=== PATIENT | female | born 1955 | race Caucasian/White ===

== ENCOUNTER 2020-11-09 10:30 | Outpatient (CLI) | payer MEDICARE, SELFPAY ==
--- NOTE | 2020-11-09 10:42 | US_ITS ---
WS: [id number] ULTRASOUND ABDOMEN LIMITED CLINICAL INFORMATION: ELEVATED BILIRUBIN COMPARISON: None. FINDINGS: Liver Size: Enlarged Craniocaudal length: 16.8 cm. Echogenicity: Coarse Surface nodularity: None. Mass (size and location): None. Bile ducts Intrahepatic ducts: Normal. Common bile duct diameter: 0.3 cm. Gallbladder Normal. Gallstones: None. Gallbladder sludge: None. Gallbladder wall thickening: None. Pericholecystic fluid: None. Sonographic Simeon sign: Absent. Pancreas Normal as visualized. Right kidney: Large simple cyst right kidney measuring 4.1 x 4.2 x 4.7 cm Moderate right pelvocaliectasis and proximal ureterectasis. Size: 11.2 cm x 5.8 cm x 3.8 cm. Abdominal aorta and IVC Visualized portions are normal. Ascites: None. US/US gall bladder [id number] IMPRESSION: 1. Mild hepatomegaly with diffuse fatty infiltration. 2. Large simple cyst right kidney measuring 4.1 x 4.2 x 4.7 cm 3. Moderate pelvocaliectasis right kidney with moderate right proximal uretere ctasis. This can be further evaluated with CT renal stone protocol to assess fo r distal obstruction. 4. Normal gallbladder.
== END 2020-11-09 10:31 | disposition home or self-care (01) ==
PROVIDERS: PCP Nurse Practitioner Family; Visit Provider Nurse Practitioner Family
DX: R16.0 Hepatomegaly, not elsewhere classified (principal); N28.1 Cyst of kidney, acquired; K76.0 Fatty (change of) liver, not elsewhere classified; N13.4 Hydroureter
CPT/HCPCS: 76705

== ENCOUNTER 2020-11-17 10:23 | Outpatient (CLI) | payer MEDICARE, SELFPAY ==
--- NOTE | 2020-11-17 10:38 | CT_ITS ---
WS: [id number] CT ABDOMEN PELVIS TECHNIQUE: Noncontrast CT of the abdomen and pelvis with coronal and sagittal reformatted images. CLINICAL INFORMATION: ABNORMAL FINDINGS OF RIGHT KIDNEY COMPARISON: Ultrasound November 09, 2020 DLP: 1042.[address] scans at [facility] use at least one of these dose optimization techniques: automat ed exposure control; mA and/or kV adjustment per patient size (includes targeted exams where dose is matched to clinical indication); or iterative reconstruction. FINDINGS: Right renal cyst measuring 4.2 x 4.7 CM. Slightly prominent right renal pelvis. Right ureter appears decompressed. No visualized obstructing renal or ureteral calculi. Right ureter not well visualized i n the pelvis due to significant beam hardening artifact from bilateral THAs. No hydronephrosis in the left kidney. Left ureter is decompressed where visualized. Mild hepatomegaly. Normal noncontrast spleen. Small esophageal hiatal hernia. Fatty atrophy of the pa ncreas. Lung bases are well aerated. Normal caliber abdominal aorta. Tiny fat-containing umbilical he rnia. Bilateral THAs degrade images in the pelvis. Sigmoid colon appears normal. No evidence of small or la rge bowel obstruction. Tiny fat-containing umbilical hernia. Normal caliber noncontrast aorta. No abd ominal lymphadenopathy. Disc space narrowing throughout the lumbar spine worse at L3-L4 L4-L5 and L5- S1. CT/CT kidney stone [id number] IMPRESSION: 1. Slightly prominent right renal pelvis with decompressed right ureter. No ev idence of obstructing renal or ureteral calculi where visualized. Ureters not w ell visualized in the pelvis due to beam hardening artifact from bilateral THAs . 2. No hydronephrosis in the left kidney. 3. Simple right renal cyst measuring 4.2 x 4.7 CM. 4. Mild hepatomegaly. 5. Small esophageal hiatal hernia. 6. Bilateral THAs. 7. No other significant findings.
== END 2020-11-17 10:24 | disposition home or self-care (01) ==
PROVIDERS: PCP Clinical Nurse Specialist Adult Health; Visit Provider Nurse Practitioner Family
DX: R93.421 Abnormal radiologic findings on diagnostic imaging of right kidney (principal); N28.1 Cyst of kidney, acquired; R16.0 Hepatomegaly, not elsewhere classified; K44.9 Diaphragmatic hernia without obstruction or gangrene; Z96.643 Presence of artificial hip joint, bilateral
CPT/HCPCS: 74176

== ENCOUNTER → 2022-06-19 09:45 | Outpatient (BNVA) | payer MEDICARE, SELFPAY | DX: E06.3 Autoimmune thyroiditis (principal) | CPT/HCPCS: 84439; 84443; 84481 ==

== ENCOUNTER → 2022-07-31 08:23 | Outpatient (BNVA) | payer MEDICARE, SELFPAY | PROVIDERS: PCP Family Medicine; Visit Provider Family Medicine | DX: Z00.00 Encounter for general adult medical examination without abnormal findings (principal); E03.9 Hypothyroidism, unspecified; G70.01 Myasthenia gravis with (acute) exacerbation | CPT/HCPCS: 80053; 80061; 84439; 84443; 84481; 85025 ==

== ENCOUNTER → 2022-12-07 09:18 | Outpatient (BNVA) | payer MEDICARE, SELFPAY | PROVIDERS: PCP Family Medicine; Visit Provider Family Medicine | DX: E03.9 Hypothyroidism, unspecified (principal); R17 Unspecified jaundice | CPT/HCPCS: 80053; 84439; 84443; 84481 ==

== ENCOUNTER 2022-12-11 12:31 | Outpatient (CLI) | payer MEDICARE, SELFPAY ==
--- NOTE | 2022-12-11 12:40 | XR_ITS ---
WS: [id number] Exam: XR KUB [id number] Date/Time of Exam: 12/11/2022 12:43 PM Reason For Exam: generalized abd pain No bowel obstruction or free air. No sign of organ enlargement. 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 Bilateral total hip replacements noted. IMPRESSION: 1. No acute abdominal finding.
== END 2022-12-11 12:32 | disposition home or self-care (01) ==
PROVIDERS: PCP Family Medicine; Visit Provider Family Medicine
DX: R10.84 Generalized abdominal pain (principal)
CPT/HCPCS: 74018

== ENCOUNTER 2022-12-11 16:47 | Outpatient (CLI) | payer MEDICARE, SELFPAY ==
--- NOTE | 2022-12-11 17:00 | CTR_ITS ---
PROCEDURE INFORMATION: Exam: CT Abdomen And Pelvis With Contrast Exam date and time: 12/11/2022 5:05 PM Age: 67 years old Clinical indication: Generalized; Prior surgery; Surgery date: 6+ months; Surgery type: Hyst, bilateral hips; Patient HX: Allover abdominal pain since last night; Additional info: Generalized abd pain tenderness, benign XR labs TECHNIQUE: Imaging protocol: Computed tomography of the abdomen and pelvis with contrast. Radiation optimization: All CT scans at this facility use at least one of these dose optimization techniques: automated exposure control; mA and/or kV adjustment per patient size (includes targeted exams where dose is matched to clinical indication); or iterative reconstruction. Contrast material: OMNIPAQUE 350; Contrast volume: 95 ml; Contrast route: INTRAVENOUS (IV); REPORTING DATA: Count of CT and Cardiac NM exams in prior 12 months: This patient has received 0 known CTs and 0 known cardiac nuclear medicine studies in the 12 months prior to the current study. COMPARISON: CT kidney stone [id number] 11/17/2020 10:53 AM RADIATION DOSE METRICS: Total DLP (mGy-cm): 989.42 FINDINGS: Liver: Normal. No mass. Gallbladder and bile ducts: Normal. No calcified stones. No ductal dilation. Pancreas: Normal. No ductal dilation. Spleen: Normal. No splenomegaly. Adrenal glands: Normal. No mass. Kidneys and ureters: 4.8 cm simple cyst noted in the right kidney. No hydronephrosis. Stomach and bowel: Colonic diverticulosis. No obstruction. No mucosal thickening. Appendix: No evidence of appendicitis. Intraperitoneal space: Unremarkable. No free air. No significant fluid collection. Vasculature: Unremarkable. No abdominal aortic aneurysm. Lymph nodes: Unremarkable. No enlarged lymph nodes. Urinary bladder: Unremarkable as visualized. Reproductive: Hysterectomy. Bones/joints: Bilateral total hip arthroplasties noted. No acute fracture. Soft tissues: Unremarkable. CT/CT abdomen pelvis w con* [id number] IMPRESSION: No acute findings. COMMENTS: Consistent with the [employer]'s Incidental Findings Committee white paper (J Am Chloe Radiol 2018): Any incidental renal lesion less than 1 cm or classified as too small to characterize, or any incidental cystic renal lesion characterized as simple-appearing, is likely benign. No follow-up imaging is recommended for these lesions per consensus recommendations based on imaging criteria.
[2022-12-11] MEDS: iohexol 350 mg/mL 500 mL Btl (per mL) IV (17:07)
== END 2022-12-11 16:48 | disposition home or self-care (01) ==
PROVIDERS: PCP Family Medicine; Visit Provider Family Medicine
DX: R10.9 Unspecified abdominal pain (principal); R10.84 Generalized abdominal pain
CPT/HCPCS: 74018; 74177; 80053; 83690; 85025; Q9967

== ENCOUNTER 2023-03-25 09:38 | Emergency (ER) | payer MEDICARE, SELFPAY ==
[2023-03-25 09:41] VITALS: BP 137/82; PULSE 75; RESP 15; TEMP 36.4; O2SAT 95
--- NOTE | 2023-03-25 09:52 | XRR_ITS ---
PROCEDURE INFORMATION: Exam: XR Chest Exam date and time: 03/25/2023 11:14 AM Age: 67 years old Clinical indication: Cough TECHNIQUE: Imaging protocol: Radiologic exam of the chest. Views: 1 view. COMPARISON: CT abdomen pelvis w con* [id number] 12/11/2022 5:05 PM FINDINGS: Lungs: The lung parenchyma is clear. Pleural spaces: No pneumothorax. No pleural effusion. Heart/Mediastinum: The cardiomediastinal silhouette is within normal limits. Bones/joints: Unremarkable. XR/XR chest 1V portable [id number] IMPRESSION: No acute cardiopulmonary abnormality.
[2023-03-25 11:08] VITALS: BP 148/81; PULSE 69; RESP 18; O2SAT 98
--- NOTE | 2023-03-25 11:43 | ED_ITS ---
HPI - URI/Sore Throat General: Chief Complaint: Upper Respiratory Infection Stated Complaint: cough, SOB Time Seen by Provider: 03/25/23 11:09 History of Present Illness: Patient presents to the ER with history of cough and congestion over the last 1 month. Patient seen her PCP approximately 3 days ago and was started on amoxicillin she thought she was getting better but woke up this morning worse. Patient does have cough and congestion. Patient denies any fevers chills nausea vomiting etc. Patient does have wheezing. Patient refused the COVID and influenza swabs but states she would be okay with an x-ray and breathing treatment. Review of Systems General: Reports: 10 or more systems reviewed and unremarkable except in HPI and below PFSH ED PFSH: Medical History Renal cyst, right 4.2 x 4.7 cm Hepatomegaly Umbilical hernia Hiatal hernia Hypothyroidism Myasthenia gravis with exacerbation, ocular Surgical History History of hysterectomy History of bilateral hip arthroplasty History of tonsillectomy Family History Mother Cancer breast Thyroid disease Family/Other Cancer breast Sister Thyroid cancer Denies family history of Diabetes CAD (coronary artery disease) Chronic kidney disease (CKD) Family history of premature coronary artery disease Stroke Social History Smoking and tobacco/nicotine status: never used tobacco/nicotine Alcohol intake: never Substance/Drug Use: never Lives independently: Yes Household members: friend(s) Housing: House Marital status: Number of children: 3 Number of grandchildren: 8 Current occupational status: retired Leisure activites: other Leisure activities details: gardening Nae/Congregation: [employer] Agree to transfusion: Yes Physical Exam Const: COMMON NORMALS: no acute distress, average body habitus, patient oriented x3, no limitations, healthy appearing, alert and well nourished HENMT: COMMON NORMALS: normocephalic, atraumatic, hearing grossly normal bilaterally, external ears normal, Normal external nose present, moist oral mucous membranes and oropharynx normal HEAD & SCALP: normocephalic and atraumatic NOSE: Normal external nose present EXTERNAL EAR: Yes external ears normal Neck/C-Spine: COMMON NORMALS: full ROM, no lymphadenopathy, supple, no meningeal signs, no JVD and Thyroid normal THYROID: Thyroid normal Chest: COMMONS NORMALS: normal inspection of the chest and normal palpation of entire chest wall Resp: COMMON NORMALS: normal respiratory effort, No retractions and No use of accessory muscles; negative for clear to auscultation bilaterally (Diffuse wheezing bilaterally) AUSCULTATION: not clear to auscultation bilaterally (Diffuse wheezing bilaterally) Cardio: COMMON NORMALS: no JVD, regular rate, regular rhythm, S1 normal heart sound present, S2 normal heart sound present, No gallops present (Cardio), No clicks present (Cardio), No murmurs present (Cardio) and No rub (Cardio) RATE: regular rate RHYTHM: regular rhythm HEART SOUNDS: S1 normal heart sound present and S2 normal heart sound present GI: COMMON NORMALS: Normal to inspection, nondistended, normoactive bowel sounds present, Soft to palpation, non-tender, No hepatosplenomegaly present and no masses PALPATION: Yes Soft to palpation and Yes No hepatosplenomegaly present Neuro: COMMON NORMALS: patient oriented x3 SENSORIUM/ORIENTATION: Yes alert MENINGEAL SIGNS: Yes no meningeal signs Course Vital Signs: Vital signs: Vital Signs Temperature 97.5 F L 03/25/23 09:41 Pulse Rate 67 03/25/23 11:58 Respiratory Rate 14 03/25/23 11:54 Blood Pressure 148/81 03/25/23 11:08 Pulse Oximetry 97 03/25/23 11:54 Oxygen Delivery Me thod Room Air 03/25/23 11:54 MDM - URI/Sore Throat Medical Decision Making Patient refused swabs but did allow us to do a chest x-ray and a breathing treatment. Chest x-ray as read by radiologist as no acute cardiopulmonary abnormality. Patient be discharged home with diagnosis of cough and should continue her amoxicillin and follow-up with her PCP within next 7 days as needed. Differential Diagnosis Likely upper respiratory infection and viral infection; Unlikely croup, otitis media, sinusitis, bronchitis, influenza or pharyngitis Medical Records I reviewed the patient's medical records. Lab Data I reviewed the patient's lab results. Radiology Impressions Chest X-Ray 03/25/23 09:52 IMPRESSION: No acute cardiopulmonary abnormality. All radiology interpretation(s) finalized by discharge Discharge Plan Discharge Patient Disposition: Home Clinical Impression: Cough Condition: Stable Prescriptions: No Action pyridostigmine bromide 60 mg tablet 30 mg PO BID amoxicillin 500 mg tablet 1,000 mg PO TID 7 Days Qty: 42 0RF levothyroxine 100 mcg tablet 100 mcg PO DAILY Qty: 90 0RF Discharge Orders: Discharge ED (Routine); Ordered 03/25/23 Ordered By: Morteza Kumar Referrals: Sahnnon Yi MD [Primary Care Provider] - 1 week Patient Instructions: Cold Symptoms (ED), Acute Cough (ED) Activity Restrictions/Additional Instructions: You are giving a DuoNeb breathing treatment in the ER. Your chest x-ray was read by the radiologist as negative for pneumonia. You probably have a acute viral upper respiratory infection. Please follow-up with your primary care doctor in the next 7 days for further evaluation and treatment. Coding Level of Care Code ED Child And Family Therapist for Hanh Williamson
[2023-03-25] MEDS: ipratropium-albuterol 3 mL Neb INHALATION (11:52)
[2023-03-25 11:54] VITALS: PULSE 70; RESP 14; O2SAT 97
[2023-03-25 11:58] VITALS: PULSE 67
== END 2023-03-25 12:43 | disposition home or self-care (01) ==
PROVIDERS: Emergency Provider Emergency Medicine; PCP Family Medicine
DX: R05.9 Cough, unspecified (principal)
CPT/HCPCS: 71045; 94640; 99283

== ENCOUNTER → 2023-04-20 10:00 | Outpatient (BNVA) | payer MEDICARE, SELFPAY | PROVIDERS: PCP Family Medicine; Visit Provider Family Medicine | DX: E03.9 Hypothyroidism, unspecified (principal) | CPT/HCPCS: 84439; 84443; 84481 ==

== ENCOUNTER → 2023-07-02 08:35 | Outpatient (BNVA) | payer MEDICARE, SELFPAY | PROVIDERS: PCP Family Medicine; Visit Provider Family Medicine | DX: E03.9 Hypothyroidism, unspecified (principal) | CPT/HCPCS: 84443 ==

== ENCOUNTER → 2023-10-08 09:22 | Outpatient (BNVA) | payer MEDICARE, SELFPAY | PROVIDERS: PCP Family Medicine; Visit Provider Family Medicine | DX: E03.9 Hypothyroidism, unspecified (principal); R17 Unspecified jaundice; R25.2 Cramp and spasm | CPT/HCPCS: 80053; 83735; 84443 ==

== ENCOUNTER 2023-11-20 08:40 | Emergency (ER) | payer MEDICARE, SELFPAY ==
[2023-11-20 08:45] VITALS: BP 184/89; PULSE 58; RESP 18; TEMP 37.1; O2SAT 97; BMI 40.3
--- NOTE | 2023-11-20 08:46 | XRR_ITS ---
PROCEDURE INFORMATION: Exam: XR Right Wrist Exam date and time: 11/20/2023 8:51 AM Age: 68 years old Clinical indication: Injury or trauma; Fall; Blunt trauma (contusions or hematomas); Wrist; Right TECHNIQUE: Imaging protocol: Radiologic exam of the right wrist. Views: 3 or more views. Total images: 3 COMPARISON: No relevant prior studies available. FINDINGS: Bones/joints: Acute comminuted fracture of the right distal radius with dorsal angulation of the major distal radial fracture fragment. The fracture is predominantly transversely oriented. There is no fracture of the ulnar styloid evident. Degenerative changes are present of the 1st metacarpal-carpal joint. No widening of the scapholunate interspace. Soft tissues: Soft tissue swelling at the level of injury. XR/XR wrist RT min 3V* [id number] IMPRESSION: 1. Acute comminuted right distal radial shaft fracture with dorsal angulation of the major distal radial fracture fragment. 2. Advanced degenerative change in the 1st metacarpal-carpal joint.
--- NOTE | 2023-11-20 09:02 | ED_ITS ---
HPI - Extremity Injury (Upper) General: Chief Complaint: Extremity Injury, Upper Stated Complaint: fall, right arm injury Time Seen by Provider: 11/20/23 08:46 Source: patient Mode of arrival: ambulatory Limitations: no limitations History of Present Illness: Patient is a nice 68-year-old female presents to ED today for evaluation of an injury to her right wrist that she sustained just prior to arrival. Patient states she was out in her yard pulling weeds when she accidentally tripped and fell backwards. She states she used her outstretched right hand to try to catch herself and injured her right wrist. She denies any other injury sustained during the fall. complaint: injury to: right and wrist Onset (ago): hour(s) Other Extremity Injury: Right: wrist Other injuries: none Place: home Severity: moderate Relieving factors: immobilization Exacerbating factors: movement of extremity Context: fall Associated symptoms: Reports no associated symptoms; Denies neck pain Related Data Home Medications Medication Instructions Recorded Confirmed pyridostigmine bromide 60 mg tablet 30 mg PO BID 06/22/22 10/08/23 Previous Rx's Medication Instructions Recorded levothyroxine 112 mcg tablet 112 mcg PO DAILY #60 tabs 10/09/23 hydrocodone 5 mg-acetaminophen 325 1 tab PO Q6H PRN pain #14 tabs 11/20/23 mg tablet Allergies Allergy/AdvReac Type Severity Reaction Status Date / Time hydromorphone [From Dilaudid] AdvReac ADR-Vomitin Verified 10/08/23 08:53 g Review of Systems Card: Denies: chest pain, palpitations, lightheadedness, syncope or pre- syncope GI: Denies: nausea or vomiting Musc: Reports: joint pain (R wrist) and joint swelling (R wrist); Denies: neck pain, back pain, extremity pain or extremity swelling Neuro: Denies: numbness in extremities or sensory changes [facility] ED PFSH: Medical History Renal cyst, right 4.2 x 4.7 cm Hepatomegaly Umbilical hernia Hiatal hernia Hypothyroidism Myasthenia gravis with exacerbation, ocular Surgical History History of hysterectomy History of bilateral hip arthroplasty History of tonsillectomy Family History Mother Cancer breast Thyroid disease Family/Other Cancer breast Sister Thyroid cancer Denies family history of Diabetes CAD (coronary artery disease) Chronic kidney disease (CKD) Family history of premature coronary artery disease Stroke Social History Smoking and tobacco/nicotine status: former use of tobacco/nicotine Alcohol intake: never Substance/Drug Use: never Lives independently: Yes Household members: friend(s) Housing: House Marital status: Number of children: 3 Number of grandchildren: 8 Current occupational status: retired Leisure activites: other Leisure activities details: gardening Nae/Episcopal: Congregation Agree to transfusion: Yes Physical Exam Const: COMMON NORMALS: no acute distress, average body habitus, patient oriented x3, no limitations, healthy appearing, alert and well nourished HENMT: COMMON NORMALS: normocephalic and atraumatic HEAD & SCALP: normocephalic and atraumatic Neck/C-Spine: COMMON NORMALS: full ROM CERVICAL SPINE: No Cervical spine tenderness Back/Pelvis: COMMON NORMALS: thoracic and lumbar spine normal to inspection Extremity: COMMON NORMALS: capillary refill normal GENERAL: Yes normal exam except as noted RIGHT UPPER EXTREMITY: Yes wrist (TTP/deformity/edema consistent with fracture) Right wrist: Yes ROM (limited secondary to pain) and Yes neurovascular exam (normal) Neuro: COMMON NORMALS: patient oriented x3, moves all extremities, no focal motor deficits and no sensory deficits noted SENSORIUM/ORIENTATION: Yes alert Course Vital Signs: Vital signs: Vital Signs Temperature 98.7 F 11/20/23 08:45 Pulse Rate 58 L 11/20/23 08:45 Respiratory Rate 18 11/20/23 08:45 Blood Pressure 184/89 11/20/23 08:45 Pulse Oximetry 97 11/20/23 08:45 Oxygen Delivery Me thod Room Air 11/20/23 08:45 MDM - Extremity Injury (Upper) Medical Decision Making XR showing a comminuted distal radial fracture. She will be splinted and will have case management set her up with orthopedics. XR interpretation done by ED provider, pending radiology final review ED provider radiology interpretation(s): XR interpretation done by ED provider, pending radiology final review ED provider radiology interpretation(s): Comminuted distal radial fracture Discharge Plan Discharge Patient Disposition: Home Clinical Impression: Distal radius fracture, right Qualifiers: Encounter type: initial encounter Fracture type: closed Fracture morphology: unspecified fracture morphology Qualified Code(s): S52.501A - Unspecified fracture of the lower end of right radius, initial encounter for closed fracture Condition: Stable Prescriptions: New hydrocodone-acetaminophen 5-325 mg tablet 1 tab PO Q6H PRN (Reason: pain) Qty: 14 0RF No Action pyridostigmine bromide 60 mg tablet 30 mg PO BID levothyroxine 112 mcg tablet 112 mcg PO DAILY Qty: 60 0RF Discharge Orders: Discharge ED (Routine); Ordered 11/20/23 Ordered By: Meg Villegas Referrals: Shannon Yi MD [Primary Care Provider] - Patient Instructions: Wrist Fracture in Adults (ED), Opioid Safety, Pain Management Activity Restrictions/Additional Instructions: As we discussed I want you to stay in your splint at all times until seen by orthopedics. Case management should reach out to you this week to help set you up with your follow-up orthopedic appointment. Coding Level of Care Code ED Pricing/Signage Team Member for Hanh Williamson
--- NOTE | 2023-11-20 09:05 | DCPLANNER ---
Message sent to ortho for a distal radial fracture.
[2023-11-20 09:43] VITALS: BP 128/74; PULSE 60; O2SAT 97
== END 2023-11-20 09:45 | disposition home or self-care (01) ==
PROVIDERS: Emergency Provider Physician Assistant; PCP Family Medicine
DX: S52.501A Unspecified fracture of the lower end of right radius, initial encounter for closed fracture (principal); Z87.891 Personal history of nicotine dependence; W01.0XXA Fall on same level from slipping, tripping and stumbling without subsequent striking against object, initial encounter; Y93.H2 Activity, gardening and landscaping; Y92.007 Garden or yard of unspecified non-institutional (private) residence as the place of occurrence of the external cause
CPT/HCPCS: 29125; 73110; 99283

== ENCOUNTER 2023-11-21 06:00 | Outpatient (CLI) | payer MEDICARE, SELFPAY | END 2023-11-21 06:01 | disposition home or self-care (01) | LOC: SOT 11-26 12:06 | PROVIDERS: Visit Provider Physician Assistant | DX: Z46.89 Encounter for fitting and adjustment of other specified devices (principal); S52.501D Unspecified fracture of the lower end of right radius, subsequent encounter for closed fracture with routine healing; X58.XXXD Exposure to other specified factors, subsequent encounter | CPT/HCPCS: 99203; L3982 ==

== ENCOUNTER → 2023-11-21 15:06 | Outpatient (BNVA) | payer MEDICARE, SELFPAY | PROVIDERS: PCP Family Medicine; Visit Provider Physician Assistant | DX: S52.501A Unspecified fracture of the lower end of right radius, initial encounter for closed fracture (principal); X58.XXXA Exposure to other specified factors, initial encounter | CPT/HCPCS: 73110 ==

== ENCOUNTER → 2023-11-27 13:58 | Outpatient (BNVA) | payer MEDICARE, SELFPAY | PROVIDERS: PCP Family Medicine; Visit Provider Student in an Organized Health Care Education/Training Program | DX: S52.501A Unspecified fracture of the lower end of right radius, initial encounter for closed fracture (principal); X58.XXXA Exposure to other specified factors, initial encounter | CPT/HCPCS: 73110 ==

== ENCOUNTER → 2023-12-04 11:13 | Outpatient (BNVA) | payer MEDICARE, SELFPAY | PROVIDERS: PCP Family Medicine; Visit Provider Student in an Organized Health Care Education/Training Program | DX: S52.501A Unspecified fracture of the lower end of right radius, initial encounter for closed fracture (principal); X58.XXXA Exposure to other specified factors, initial encounter | CPT/HCPCS: 73110; 99213 ==

== ENCOUNTER → 2023-12-10 09:00 | Outpatient (BNVA) | payer MEDICARE, SELFPAY | PROVIDERS: PCP Family Medicine; Visit Provider Family Medicine | DX: E03.9 Hypothyroidism, unspecified (principal) | CPT/HCPCS: 84443 ==

== ENCOUNTER → 2023-12-11 09:40 | Outpatient (BNVA) | payer MEDICARE, SELFPAY | PROVIDERS: PCP Family Medicine; Visit Provider Student in an Organized Health Care Education/Training Program | DX: S52.501A Unspecified fracture of the lower end of right radius, initial encounter for closed fracture (principal); X58.XXXA Exposure to other specified factors, initial encounter | CPT/HCPCS: 73110; 99213 ==

== ENCOUNTER → 2024-01-04 08:33 | Outpatient (BNVA) | payer MEDICARE, SELFPAY | PROVIDERS: PCP Family Medicine; Visit Provider Physician Assistant | DX: S52.501A Unspecified fracture of the lower end of right radius, initial encounter for closed fracture (principal); X58.XXXA Exposure to other specified factors, initial encounter | CPT/HCPCS: 73110 ==

== ENCOUNTER 2024-01-04 09:28 | Outpatient (CLI) | payer MEDICARE, SELFPAY | END 2024-01-04 09:29 | LOC: SOT 09:36 | PROVIDERS: PCP Family Medicine; Visit Provider Student in an Organized Health Care Education/Training Program | DX: S52.501A Unspecified fracture of the lower end of right radius, initial encounter for closed fracture (principal); X58.XXXA Exposure to other specified factors, initial encounter | CPT/HCPCS: 99213 ==

== ENCOUNTER → 2024-02-01 09:50 | Outpatient (BNVA) | payer MEDICARE, SELFPAY | PROVIDERS: PCP Family Medicine; Visit Provider Physician Assistant | DX: S52.501A Unspecified fracture of the lower end of right radius, initial encounter for closed fracture (principal); X58.XXXA Exposure to other specified factors, initial encounter | CPT/HCPCS: 73110; 99213 ==

== ENCOUNTER → 2024-04-28 09:33 | Outpatient (BNVA) | payer MEDICARE, SELFPAY | PROVIDERS: PCP Family Medicine; Visit Provider Family Medicine | DX: E03.9 Hypothyroidism, unspecified (principal) | CPT/HCPCS: 84443 ==

== ENCOUNTER → 2024-06-27 10:59 | Outpatient (BNVA) | payer MEDICARE, SELFPAY | PROVIDERS: PCP Family Medicine; Visit Provider Family Medicine | DX: E03.9 Hypothyroidism, unspecified (principal) | CPT/HCPCS: 84443 ==